=== PATIENT | female | born 1935 | race Caucasian/White ===

== ENCOUNTER 2018-12-25 11:16 | Inpatient (IN) | payer MEDICARE, BC, OTHER ==
[~2018-12-25] VITALS: Ht 170.2 cm; Wt 89.2 kg
[2018-12-25 11:18] VITALS: BP 193/87
[2018-12-25] MEDS ORDERED: ASPIR 8181 MG PO (11:28)
[2018-12-25] MEDS ORDERED: ARIMIDEX1 MG PO (11:28)
[2018-12-25] MEDS ORDERED: ZIAC 2.5-6.251 EACH PO (11:28)
[2018-12-25] MEDS ORDERED: ANTIVERT25 MG PO (11:29)
[2018-12-25 11:41] LABS: ABSOLUTE LYMPHOCYTES 1.4 thou/uL (0.8-5.3); ABSOLUTE MONOCYTES 0.7 thou/uL (0.0-1.2); ABSOLUTE NEUTROPHILS 8.3 thou/uL (1.6-8.1); BASOPHILS 0.3 %; EOSINOPHILS 0.2 %; HEMATOCRIT 42.4 % (37.0-47.0); HEMOGLOBIN 14.4 gm/dL (12.0-15.0); LYMPHOCYTES 13.4 %; MCH 31.1 pg (26.0-34.0); MCHC 33.9 g/dL (28.0-37.0); MCV 91.7 fL (80.0-100.0); MONOCYTES 6.3 %; MPV 6.7 fl. (7.2-11.1); NUCLEATED RBCS 0 /100WBC; PLATELET COUNT* 278 thou/uL (150-400); POLYS 79.8 %; RBC 4.62 mil/uL (4.20-5.00); RDW-CV 13.8 % (10.5-14.5); WBC 10.5 thou/uL (4.0-11.0)
[2018-12-25 11:48] LABS: ANION GAP 9 mmol/L (7-16); BUN 11 mg/dL (7-18); CALCIUM 9.5 mg/dL (8.5-10.1); CHLORIDE 97 mmol/L (98-107); CO2 28 mmol/L (21-32); CREATININE 0.7 mg/dL (0.6-1.3); GLUCOSE 160 mg/dL (70-99); POTASSIUM 3.5 mmol/L (3.5-5.1); SODIUM 134 mmol/L (136-145)
[2018-12-25 11:57] LABS: ALBUMIN 4.2 g/dL (3.4-5.0); ALKALINE PHOSPHATASE 55 U/L (46-116); SGOT 37 U/L (15-37); SGPT 30 U/L (30-65); TOTAL BILIRUBIN 0.7 mg/dL (<0.1-1.0); TOTAL PROTEIN 7.7 g/dL (6.4-8.2); TROPONIN-I LEVEL <0.06 ng/mL (<0.06)
[2018-12-25 15:10] VITALS: BP 162/67
[2018-12-25 15:26] VITALS: BP 144/71
--- NOTE | 2018-12-25 18:50 | 2DMMODE ---
[place] [address] 2 D/M-MODE ECHOCARDIOGRAM Name: ROGER BLAIR Room: [address] IN [facility]#: [id number] Admission: 12/25/18 Attend Phys: Madhu Caballero Discharge: Date of : 37 Date of Service: 12/25/18 1850 Report #: [id number] THIS REPORT FOR: //name// APPROVED REPORT Study performed: 12/25/2018 16:09:30 EXAM: Comprehensive 2D, Doppler, and color-flow Echocardiogram Patient Location: In-Patient Room #: 230 Status: routine BSA: 1.96 HR: 74 bpm BP: 144/74 mmHg Rhythm: NSR Other Information Study Quality: Good Indications CVA/TIA Echo Enhancing Agent Indication: Rule out Shunt Agent(s) / Amount(s) Used: Agitated Saline 10 cc 2D Dimensions IVSd: 9.26 (7-11mm) LVOT Diam: 19.66 (18-24mm) LVDd: 44.32 mm PWd: 8.37 (7-11mm) Ascending Ao: 34.73 (22-36mm) LVDs: 25.78 (25-40mm) Aortic Root: 25.76 mm Volumes Left Atrial Volume (Systole) LA ESV Index: 23.20 mL/m2 Aortic Valve AoV Peak Sammy.: 1.56 m/s AO Peak Gr.: 9.79 mmHg LVOT Max P.93 mmHg AO Mean Gr.: 5.38 mmHg LVOT Mean P.14 mmHg LVOT Max V: 1.11 m/s AO V2 VTI: 35.58 cm LVOT Mean V: 0.66 m/s DILIP (VTI): 2.04 cm2 LVOT V1 VTI: 23.88 [place] [address] 2 D/M-MODE ECHOCARDIOGRAM Name: ROGER BLAIR Room: [address] IN [facility]#: [id number] Admission: 12/25/18 Attend Phys: Madhu Caballero Discharge: Date of : 37 Date of Service: 12/25/18 1850 Report #: [id number] Mitral Valve E/A Ratio: 0.85 MV Decel. Time: 306.65 ms MV E Max Sammy.: 0.90 m/s MV PHT: 88.93 ms MVA (PHT): 2.47 cm2 TDI E/Lateral E': 12.86 E/Medial E': 12.86 Medial E' Sammy.: 0.07 m/s Lateral E' Sammy.: 0.07 m/s Pulmonary Valve PV Peak Sammy.: 0.91 m/s PV Peak Gr.: 3.32 mmHg Tricuspid Valve RAP Estimate: 5.00 mmHg TR Peak Gr.: 32.51 mmHg RVSP: 37.00 mmHg PA Pressure: 37.00 mmHg Left Ventricle The left ventricle is normal size. There is normal LV segmental wall motion. There is normal left ventricular wall thickness. Left ventricular systolic function is normal. LVEF is 55-60%. Grade I - abnormal relaxation pattern. Right Ventricle The right ventricle is normal size. The right ventricular systolic function is normal. Atria The left atrium size is normal. Interatrial septum is intact without evidence of ASD or PFO. The right atrium size is normal. Aortic Valve Mild aortic valve sclerosis. No aortic regurgitation is present. There is no aortic valvular stenosis. Mitral Valve The mitral valve is normal in structure. Mild mitral regurgitation. No evidence of mitral valve stenosis. Tricuspid Valve The tricuspid valve is normal in structure. Mild tricuspid regurgitation. The RVSP is 40-[place] [address] 2 D/M-MODE ECHOCARDIOGRAM Name: ROGER BLAIR Room: [address]#: [id number] Admission: 12/25/18 Attend Phys: Madhu Caballero Discharge: Date of : 37 Date of Service: 12/25/18 1850 Report #: [id number] Pulmonic Valve The pulmonary valve is normal in structure. There is no pulmonic valvular regurgitation. Great Vessels The aortic root is normal in size. IVC is normal in size and collapses >50% with inspiration. Pericardium There is no pericardial effusion. <Conclusion> The left ventricle is normal size. There is normal left ventricular wall thickness. Left ventricular systolic function is normal. LVEF is 55-60%. Grade I - abnormal relaxation pattern. There is normal LV segmental wall motion. Mild aortic valve sclerosis. There is no aortic valvular stenosis. Mild mitral regurgitation. Mild tricuspid regurgitation. The RVSP is 40-45 mmHg. IVC is normal in size and collapses >50% with inspiration. <ELECTRONICALLY SIGNED> By: Power Rock MD, FACC 12/25/181849 49 49 Power Rock MD, FACC /INF
[2018-12-25 20:00] VITALS: BP 146/62
[2018-12-26] VITALS: BP 106/58
[2018-12-26 04:00] VITALS: BP 137/59
[2018-12-26 05:26] LABS: ALBUMIN 3.4 g/dL (3.4-5.0); ALKALINE PHOSPHATASE 48 U/L (46-116); ANION GAP 7 mmol/L (7-16); BUN 6 mg/dL (7-18); CALCIUM 8.8 mg/dL (8.5-10.1); CHLORIDE 104 mmol/L (98-107); CHOLESTEROL 140 mg/dL (<200); CO2 31 mmol/L (21-32); CREATININE 0.7 mg/dL (0.6-1.3); GLUCOSE 102 mg/dL (70-99); HDL CHOLESTEROL 42 mg/dL (>40); LDL CHOLESTEROL 84 mg/dL (<100); SGOT 21 U/L (15-37); SGPT 26 U/L (30-65); TC:HDL 3.3 Ratio (Not establshd); TOTAL BILIRUBIN 0.8 mg/dL (<0.1-1.0); TOTAL PROTEIN 6.6 g/dL (6.4-8.2); TRIGLYCERIDE 73 mg/dL (<150); VLDL 15 mg/dL (<40)
[2018-12-26 05:28] LABS: SERUM ASSESSMENT CLEAR; SODIUM 142 mmol/L (136-145)
[2018-12-26 08:00] VITALS: BP 120/57
--- NOTE | 2018-12-26 11:12 | EKG ---
[place] [address] ELECTROCARDIOGRAM REPORT Name: ROGER BLAIR Room: [address] ADM IN [facility].#: [id number] Admission: 12/25/18 Attend Phys: Elizabeth Anderson Discharge: Date of : 37 Report #: [id number] THIS REPORT FOR: //name// [facility] ED Test Date: 2018-12-25 Test Time: 12:04:26 Pat Name: ROGER BLAIR Department: Room: [facility] Gender: F Safe Expert: : 1935 Requested By: Bernardino Cook Order Number: [id number] MD: Pranay Rascon Measurements Intervals [place] Rate: 78 P: 31 MT: 169 QRS: -15 QRSD: 98 T: -11 QT: 390 QTc: 445 Interpretive Statements Sinus rhythm Inferior infarct, old Consider anterior infarct No previous ECG available for comparison Electronically Signed On 12-26-2018 11:11:53 CDT by Pranay Rascon [email or web address] <ELECTRONICALLY SIGNED> By: Pranay Rascon MD, [facility] 12/26/18 1111 1204 1204 Pranay Rascon MD, FACC /EPI
[2018-12-26 12:26] VITALS: BP 157/60
[2018-12-26 15:50] VITALS: BP 187/80
[2018-12-26 20:00] VITALS: BP 141/82
[2018-12-27] VITALS (7 sets, daily range): BP systolic 140–179; BP diastolic 59–90
[2018-12-27 02:06] LABS: GLYCOHEMOGLOBIN (HGB A1C) 6.4 % (4.8-5.6)
[2018-12-27 08:52] LABS: ALBUMIN 3.9 g/dL (3.4-5.0); CALCIUM 8.9 mg/dL (8.5-10.1); CREATININE 0.7 mg/dL (0.6-1.3); POTASSIUM 3.3 mmol/L (3.5-5.1); TOTAL PROTEIN 6.8 g/dL (6.4-8.2)
[2018-12-28 03:30] VITALS: BP 192/93
[2018-12-28 07:00] VITALS: BP 165/73
[2018-12-28 11:28] VITALS: BP 183/90
[2018-12-28] MEDS ORDERED: COLACE100 MG PO (13:06)
[2018-12-28] MEDS ORDERED: LIDOCAINE PAIN1 EACH TRANSDERM (13:18)
[2018-12-28] MEDS ORDERED: LIPITOR 20 MG T20 M1 PO (13:21)
[2018-12-28] MEDS ORDERED: MILK OF MA400 MG/5 M PO (13:23)
[2018-12-28] MEDS ORDERED: TYLENOL325 MG PO (13:24)
[2018-12-28] MEDS ORDERED: ZIAC 2.5-6.251 EACH PO (13:25)
[2018-12-28] MEDS ORDERED: LOPERAMIDE2 MG PO (13:27)
[2018-12-28 13:31] VITALS: BP 183/90
--- NOTE | 2018-12-30 09:29 | CON ---
[address] [address] CONSULTATION Name: ROGER BLAIR Room: [address] IN .R.#: [id number] Admission: 12/25/18 Attend Phys: Elizabeth Anderson Discharge: 12/28/18 Date of : 37 Report #: [id number] THIS REPORT FOR: //name// CC: HO MUNGUIA Physician staff Madhu Caballero DATE OF SERVICE: 12/25/2018 HISTORY OF PRESENT ILLNESS: This is an 83-year-old female patient who indicates that her symptoms started about a week ago. She was having some dizziness. Today, she fell. She thought she fell because she was weak in the left lower extremity. She has not noticed any weakness in the left upper extremity. The symptoms came spontaneously without any trauma. She never had any stroke before. REVIEW OF SYSTEMS: Indicate that she has this dizziness this time, but now she is also having weakness on the left side. She indicates that the mother had a stroke when she was 82. She does have a history of rheumatic fever and that caused some undefined problem with the heart. She does have some prior musculoskeletal problems. She denies any eye, ENT, cardiac, respiratory, GI, , musculoskeletal, constitutional, dermatological, hematological, psychiatric, throat, allergic symptom associated with present symptomatology. PAST MEDICAL HISTORY: Negative for any stroke. FAMILY HISTORY: Positive for stroke in mother that happened when she was 82-year-old. SOCIAL HISTORY: She denies the use of alcohol and tobacco. PHYSICAL EXAMINATION: Indicates she is alert, responsive, able to follow simple and complex command. Her speech, concentration, fund of knowledge and memory is at her baseline. Cranial nerve examination 2-12 looks unremarkable. She does appear to have somewhat symmetrical strength, it may be somewhat diminished on the left lower extremity. She may have some neglect there also. Her position sense is intact. Reflexes are diminished on both sides, but symmetrically. There is no cerebellar sign. Tone looks symmetrical. I could not look at the fundus. There is no meningeal sign. There is no carotid bruit in this patient. Cardiac examinations clinically looks unremarkable. No respiratory difficulty or rhonchi was noticed. Blood pressure is 144/71, respirations 16, pulse is 73, temperature is 98.4. LABORATORY DATA: White count is 10.5. Sodium is little dominant at 134. She did have a CT scan of the head, which appear unremarkable. MRI [place] [address] CONSULTATION Name: ROGER BLAIR Room: [address]#: [id number] Admission: 12/25/18 Attend Phys: Elizbaeth Anderson Discharge: 12/28/18 Date of : 37 Report #: [id number] IMPRESSION: I think the first emphasis should be to exclude the possibility of stroke in this patient. If that is excluded, she may need workup of the spine as well as ENT problems. So, we will await the MRI in this patient and then plan the further workup accordingly. I will go ahead and do MRA at the same time because of the left-sided weakness. All of it was discussed with him. Thank you very much for this referral and if you have any questions, please feel free to contact me. <ELECTRONICALLY SIGNED> By: Naif Joiner MD 12/30/18 0929 [id number] [id number] Joiner MD /nt
== END 2018-12-28 16:00 | DRG 65 ==
LOC: M.ERS 11:16 → M.TBA-ER 13:34 → M.2W 13:34
PROVIDERS: Emergency Medicine Emergency Medical Services; ADMIT Internal Medicine
DX: I63.9 Cerebral infarction, unspecified (principal); G81.94 Hemiplegia, unspecified affecting left nondominant side; E87.1 Hypo-osmolality and hyponatremia; S43.102A Unspecified dislocation of left acromioclavicular joint, initial encounter; I10 Essential (primary) hypertension; Z60.2 Problems related to living alone; E87.6 Hypokalemia; H81.10 Benign paroxysmal vertigo, unspecified ear; Z85.3 Personal history of malignant neoplasm of breast; Z88.0 Allergy status to penicillin; Z88.2 Allergy status to sulfonamides; Z88.8 Allergy status to other drugs, medicaments and biological substances; Z82.3 Family history of stroke; Z82.49 Family history of ischemic heart disease and other diseases of the circulatory system; Z83.3 Family history of diabetes mellitus; Z79.82 Long term (current) use of aspirin; Z79.899 Other long term (current) drug therapy; W18.39XA Other fall on same level, initial encounter; Y93.01 Activity, walking, marching and hiking; Y92.89 Other specified places as the place of occurrence of the external cause; Y99.8 Other external cause status